=== PATIENT | male | born 1965 | race Caucasian/White ===

== ENCOUNTER 2017-10-16 07:37 | Day surgery (SDC) | payer OTHER ==
[2017-10-16] MEDS ORDERED: LACTATED RINGERS 1,000 ML IV ONE (08:43)
[2017-10-16] MEDS ORDERED: LIDOCAINE-MPF 2% 5 ML VIAL IM ONE (10:10)
[2017-10-16] MEDS ORDERED: PROPOFOL 200 MG/20 ML VIAL IVP ONE (10:10)
[2017-10-16 11:07] VITALS: BP 110/58
== END 2017-10-16 07:38 | disposition home or self-care (01) ==
LOC: SDS 07:37
PROVIDERS: ATTEND Internal Medicine Gastroenterology
PROC: 0DBM8ZX Excision of Descending Colon, Via Natural or Artificial Opening Endoscopic, Diagnostic (ICD-10-PCS; principal; 2017-10-16 09:00)
DX: Z12.11 Encounter for screening for malignant neoplasm of colon (principal); D12.4 Benign neoplasm of descending colon; E78.5 Hyperlipidemia, unspecified; E11.9 Type 2 diabetes mellitus without complications; F17.200 Nicotine dependence, unspecified, uncomplicated; G47.30 Sleep apnea, unspecified; E66.01 Morbid (severe) obesity due to excess calories; Z79.84 Long term (current) use of oral hypoglycemic drugs
CPT/HCPCS: 45380; J7120

== ENCOUNTER 2017-11-18 10:07 | Outpatient (CLI) | payer OTHER | END 2017-11-18 10:08 | disposition home or self-care (01) | LOC: SC 10:07 | PROVIDERS: ATTEND Nurse Practitioner Family | DX: G47.33 Obstructive sleep apnea (adult) (pediatric) (principal); G47.20 Circadian rhythm sleep disorder, unspecified type | CPT/HCPCS: 99203; 99212 ==